=== PATIENT | female | born 1990 | race Caucasian/White ===

== ENCOUNTER → 2019-06-06 | Outpatient (REF) | payer OTHER | LOC: M SFHCLERA 11:43 | PROVIDERS: ATTEND Nurse Practitioner Family | DX: J02.9 Acute pharyngitis, unspecified (principal) ==

== ENCOUNTER → 2019-11-14 | Outpatient (CLI) | payer OTHER ==
--- NOTE | 2019-11-15 14:18 | REP ---
PELVIC ULTRASOUND: Real-time sonographic evaluation of pelvis performed. Transabdominal and endovaginal technique is utilized. Bladder measures 14.1 x 8.8 x 10.8 cm. Uterus measures 8.2 x 3.6 x 4.9 cm. Endometrial thickness is 10 mm. There is no endometrial fluid collection. There is a subcentimeter nabothian cyst. Ovaries appear normal in size and echotexture, right ovary measuring 3.7 x 2.3 x 2.8 cm and left ovary 2.3 x 4.5 x 3.5 cm. No adnexal mass or free fluid is seen. There is blood flow seen in each ovary with duplex Doppler evaluation. IMPRESSION: Essentially negative pelvic ultrasound. Electronically Signed by Robb Hooper MD 11/16/2019 11:33 P
== END ==
LOC: M LRY 10:58
PROVIDERS: ATTEND Advanced Practice Midwife
DX: N92.3 Ovulation bleeding (principal)

== ENCOUNTER → 2020-03-17 | Outpatient (REF) | payer OTHER ==
[2020-03-17 18:02] LABS: LUTEINIZING HORMONE 3.8 mIU/mL
== END ==
LOC: M PLALAB 15:47
PROVIDERS: ATTEND Advanced Practice Midwife
DX: Z31.9 Encounter for procreative management, unspecified (principal)

== ENCOUNTER → 2020-04-05 | Outpatient (CLI) | payer OTHER ==
[2020-04-05 16:17] LABS: FREE T4 1.19 NG/DL (0.76-1.46); PROGESTERONE 0.59 NG/ML; PROLACTIN 7.5 NG/ML; THYROID STIMULATING HORMONE 1.76 uIU/ML (0.358-3.740)
[2020-04-05 16:18] LABS: ESTRADIOL 53.8 PG/ML
== END ==
LOC: M PLALAB 14:20
PROVIDERS: ATTEND Advanced Practice Midwife
DX: Z31.9 Encounter for procreative management, unspecified (principal)

== ENCOUNTER → 2020-05-11 | Outpatient (CLI) | payer SELFPAY | LOC: M LABSMTC 12:21 | PROVIDERS: ATTEND Pediatrics | DX: Z20.822 Contact with and (suspected) exposure to COVID-19 (principal) ==

== ENCOUNTER → 2020-06-06 | Outpatient (CLI) | payer SELFPAY | LOC: M LABSMTC 09:55 | PROVIDERS: ATTEND Pediatrics | DX: Z20.822 Contact with and (suspected) exposure to COVID-19 (principal) ==

== ENCOUNTER → 2020-07-23 | Outpatient (CLI) | payer OTHER ==
[~2020-07-23] MED LIST: ISOVUE-370 76% 100ML VIAL As Ordered ONE
--- NOTE | 2020-07-23 16:30 | REP ---
INDICATION: PROCREATIVE MANAGEMENT. COMPARISON: None. TECHNIQUE: The endometrium was cannulated and contrast was injected by the attending supervisor fish processing Dr. Santana. Fluoroscopic spot films were acquired by KEVIN Phillips, under the direct supervision of Dr. Vallecillo. Images reviewed prior with Dr. Vallecillo to dictation. FINDINGS: Fluoroscopy spot radiographs document filling of a normal endometrial cavity. There is normal isthmic and ampullary fallopian tube opacification, and bilateral tubal patency was documented. IMPRESSION: Normal hysterosalpingogram with bilateral tubal patency documented. 0.2 minutes of fluoroscopy time was utilized for this procedure. Some fluoroscopic images are performed with last image hold technology. These images require no additional radiation. <Electronically signed by Cassie Dsos > 07/23/20 1629 <Electronically signed by Luis Vallecillo > 07/23/20 1696
== END ==
LOC: M RADPRO 11:40
PROVIDERS: ATTEND Obstetrics & Gynecology
DX: N97.9 Female infertility, unspecified (principal)
CPT/HCPCS: 58340; 74740; 81025; G0463; Q9967

== ENCOUNTER → 2020-07-23 | Outpatient (CLI) | payer OTHER, SELFPAY | LOC: M LABSMTC 10:30 | PROVIDERS: ATTEND Pediatrics | DX: Z11.52 Encounter for screening for COVID-19 (principal) ==

== ENCOUNTER → 2020-08-19 | Outpatient (CLI) | payer SELFPAY | LOC: M LABSMTC 13:28 | PROVIDERS: ATTEND Pediatrics | DX: Z11.52 Encounter for screening for COVID-19 (principal) ==

== ENCOUNTER → 2020-11-30 | Outpatient (REF) | payer OTHER | LOC: M PLALAB 14:14 | PROVIDERS: ATTEND Obstetrics & Gynecology | DX: Z32.01 Encounter for pregnancy test, result positive (principal) ==

== ENCOUNTER → 2020-11-30 | Outpatient (CLI) | payer OTHER | LOC: M PLALAB 14:34 | PROVIDERS: ATTEND Obstetrics & Gynecology | DX: Z32.01 Encounter for pregnancy test, result positive (principal) ==

== ENCOUNTER → 2020-12-02 | Outpatient (CLI) | payer OTHER | LOC: M PLALAB 13:17 | PROVIDERS: ATTEND Obstetrics & Gynecology | DX: Z32.01 Encounter for pregnancy test, result positive (principal) ==

== ENCOUNTER → 2020-12-15 | Outpatient (CLI) | payer OTHER | LOC: M WHC 11:42 | PROVIDERS: ATTEND Obstetrics & Gynecology | DX: Z36.87 Encounter for antenatal screening for uncertain dates (principal) ==